=== PATIENT | male | born 1990 | race Caucasian/White ===

== ENCOUNTER 2020-03-18 09:08 | Day surgery (SDC) | payer MEDICAID, SELFPAY ==
[2020-02-25 14:54] VITALS: BMI 38.4
--- NOTE | 2020-03-12 14:27 | NURSING ---
Addendum entered by Janet Reynolds 03/12/20 14:39: When attempting to schedule labs and EKG to be completed the week prior to surgery, mother states (for multiple personal reasons) that she would not be able to drive pt to [facility] due to driving at dark, babysitting, etc. This RN explained the risk in waiting to have tests done closer to day of surgery. Mother verbalizes understanding. appointments made per mother's request. Original Note: During PAT Phone Call, pt's mother answered health history questions, as she said she was POA and that pt was unavailable. Throughout the end of the phone call, mother conversed with son while they were in the store. Mother talked over RN conducting phone call. This RN asked mother if she needed time to finish shopping discussion with son. Mother states she needed RN to proceed. RN gave preOP instructions for surgery regarding testing appointments, NPO status, arrival time, and asked for clarification that mother was hearing info correctly, as this RN could hear shopping discussions continuing to be made whilst RN was giving instructions. RN made appointments at mother's request; mother asked that those appts be cancelled due to driving long distance and other personal reasons. RN rescheduled appointments at mothers request. RN repeated instructions and times multiple times. Mother verbalizes understanding, repeats back to RN the dates and times of testing, and denies further questions.
--- NOTE | 2020-03-17 10:23 | EKG12_ITS ---
Test Reason : PRE SURGERY Blood Pressure : / mmHG Vent. Rate : 081 BPM Atrial Rate : 081 BPM P-R Int : 162 ms QRS Dur : 110 ms QT Int : 394 ms P-R-T Axes : 042 005 011 degrees QTc Int : 457 ms Normal sinus rhythm Normal ECG Confirmed by JUANPABLO CARR, CRIS ([id number]), assignment desk editor MALIKA GAMA ([id number]) on 03/18/2020 9:14:00 AM Referred By: Rachana Rodriguez Confirmed By:CRIS GERONIMO MD
[2020-03-17 11:22] LABS: Hematocrit 46.1 % (40-54); Mean Corp Hgb Conc 32.5 g/dL (32-36); Mean Corpuscular Hgb 29.1 pg (27.0-32.0); Mean Corpuscular Volume 89.3 fL (80-94); Mean Platelet Vol. 11.6 fl (6.2-12.0); Platelet Count 319 K/mm3 (150-450); RBC Distribution Width CV 12.1 % (11.6-14.6); RBC Distribution Width SD 39.5 fl (35.1-43.9); Red Blood Count 5.16 M/mm3 (4.6-6.2); White Blood Count 9.7 K/mm3 (4.4-11.0)
[2020-03-17 12:02] LABS: Anion Gap 6 (5-15); BUN 6 mg/dL (7-18); BUN/Creat Ratio 6.5 RATIO (10-20); Calcium,Total 9.2 mg/dL (8.5-10.1); Chloride 103 mmol/L (98-107); Creatinine, Serum 0.92 mg/dL (0.70-1.30); EST Glomerular Filtration Rate 102 mL/min (>60); Est Glom Filt Rate - Afr Amer 123 mL/min (>60); Glucose 125 mg/dL (74-106); Potassium 3.7 mmol/L (3.5-5.1); Sodium Level 139 mmol/L (136-145)
[2020-03-18] VITALS (8 sets, daily range): BP systolic 126–151; BP diastolic 82–98; PULSE 76–109; RESP 12–17; TEMP 36.6; O2SAT 94–98; BMI 39.6
--- NOTE | 2020-03-18 06:52 | HP_ITS ---
I have re-examined the patient. There are no clinical changes since date of exam. Intake Intake Visit Reasons: LEFT SHOULDER Accompanied by: Mother Is patient in pain?: Yes Pain scale (1-10): 10 Allergies acetaminophen [From Percocet] Allergy (Mild, Verified 03/10/20 14:35) Extreme vomiting, nausea amoxicillin Allergy (Mild, Verified 03/10/20 14:35) Anaphylaxis, Rash loperamide [From Imodium A-D] Allergy (Mild, Verified 03/10/20 14:35) Hives oxycodone [From Percocet] Allergy (Mild, Verified 03/10/20 14:35) Extreme vomiting, nausea Penicillins Allergy (Mild, Verified 03/10/20 14:35) Anaphylaxis, Rash topiramate [From Topamax] Allergy (Mild, Verified 03/10/20 14:35) SOB, nausea, GI upset Medications acetaminophen 325 mg capsule 325 mg PO ONCE PRN 02/25/20 [History Confirmed 03/10/20] ibuprofen 800 mg tablet tab PO 02/25/20 [History Confirmed 03/10/20] promethazine 25 mg tablet tab PO 02/25/20 [History Confirmed 03/10/20] rizatriptan 10 mg tablet tab PO 02/25/20 [History Confirmed 03/10/20] diphenhydramine HCl 25 mg capsule 25 mg PO QHS PRN 03/10/20 [History Confirmed 03/10/20] gabapentin 600 mg tablet 900 mg PO TID tab 03/10/20 [History Confirmed 03/10/20] nadolol 40 mg tablet 40 mg PO DAILY tab 03/10/20 [History Confirmed 03/10/20] tizanidine 2 mg tablet 6 mg PO QHS tab 03/10/20 [History Confirmed 03/10/20] PFSH Medical History (Updated 02/25/20 @ 15:00 by Reyna Ferguson) Migraines (Acute) shoulder slap repair (Acute) Chronic pain (Chronic) Surgical History (Updated 02/25/20 @ 15:00 by Reyna Ferguson) H/O arthroscopic knee surgery (Acute) Family History (Updated 02/25/20 @ 15:01 by Reyna Ferguson) Mother POTS (postural orthostatic tachycardia syndrome) Diabetes Hypertension CVA (cerebral vascular accident) Social History (Updated 03/12/20 @ 12:[address] Rachana Rodriguez, ) household members: other details: mother housing: house Smoking Status: Former smoker Tobacco: How many years used: 13 alcohol intake: current alcohol intake frequency: holidays/special occasions only what type of physical activity do you participate in: none do you feel safe at home: Yes HPI LEFT SHOULDER: Surgical H&P: Yes Details: Parts of this documentation were recorded by a scribe, this documentation accurately reflects the service provided and the decisions made by me, Dr. Rachana Rodriguez, 03/10/20 [id number]. MEG VALDIVIA is a 30 year old M here today for his two week follow up to review. Patient states he has had no changes since his last office visit. Pain is rated: 10/10 from the pain scale. Patient has been taking Tylenol and ibuprofen for pain relief. Patient's mother brought in the surgical images that were requested. ROS Musc Reports system reviewed and no additional complaints, except as docu, Reports joint pain, Reports numbness, Reports tingling Neuro Yes numbness, Yes tingling Ortho Exam Right Shoulder Skin/Wound: Yes CDI, No ecchymosis, No erythema, No swelling Testing: Positive AROM-Forward Elevation 0-180 Internal Rotation: T12 Left Shoulder Skin/Wound: Yes CDI, No ecchymosis, No erythema, No swelling Testing: Yes AROM-Forward Elevation 0-180, Yes Apprehension Test, No Sulcus Sign, Yes translation (anterior) Internal Rotation: T12 SHOULDER: 4/5 deltoid, 4/5 biceps, neuro intact bilaterally. symmetrical reflexes. negative hoffmans Assessment & Plan Problems 1. 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 Tear of left glenoid labrum, subsequent encounter S43.432D Plan Personally reviewed patient medication records and operative reports. Treatment options are do nothing or injection or PT or left shoulder scope for labral tear. Patient educated that the previous surgery may have repaired the labrum too tight and this could be causing the apprehension anteriorly and he just needs an additional anchor placed. Reviewed the pre-operative plans with the patient. Risks and benefits of the procedure were fully explained, including but not limited to infection, neurovascular injury, continued pain, arthritis, stiffness, need for further surgery, re-injury, DVT, PE, general risks of anesthesia, and loss of limb or life. The patient understands all the risks and does wish to proceed with written consent for left shoulder arthroscopy capsulorraphy, possible revision SLAP repair, subacromial decompression/acromioplasty, repair as indicated. DOES NOT want a nerve block has a hx of complications with this in the past. Follow up post op or sooner if pain, swelling, numbness or associated symptoms, or concerns develop. All questions answered. Patient in agreement of plan. On physical exam patient again is posteriorly dislocating with minimal effort he has done a lot of physical therapy most of his pain is because of the instability posteriorly and not anteriorly. At this point we did discuss the fact that his IGH L was also redone and so this will be tightened both anteriorly and posteriorly will drive some capsule to facilitate a posterior capsular closure as well as a labral repair as it did not appear to be much capsular closure on his last surgery. We will also have to look at his rotator cuff as well as evaluate. The biggest risk for him is continued instability and/or stiffness. This was discussed to create quite some detail with family both in the office and again today preop. Patient is aware would like proceed with left shoulder arthroscopy knowing the risks benefits alternatives surgery. 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
[2020-03-18] MEDS: Lactated Ringers 1,000 ML 100 ML IV (10:00)
[2020-03-18] MEDS: Epinephrine (1 mg/ml) 1 MG/ML VIAL (12:10)
[2020-03-18] MEDS: Bupiv/Epi 0.25% 30 ML Vial (13:30)
[2020-03-18] MEDS: Mupirocin Ointment 22gm Tube 1 APPLIC (13:30)
--- NOTE | 2020-03-18 14:47 | DCINST_ITS ---
Discharge Diet: No Restrictions - sling at all times unless doing pendulums three times a day, follow up on monday with pillo, keep dressing clean,dry, and intact, call with concerns Discharge Activity: May Not Drive May shower in (days): 1 Ice area for (Minutes): 20 - Every hour while awake. Weight Bearing Status: Weight bearing as tolerated Keep extremity elevated above heart level: Operative Extremity Call your doctor if your incision/area has: Continuous Slow Oozing, Sudden Increased Bleeding, Increased Pain/ Swelling, Increased Redness, Foul Smelling Discharge Call your doctor if you observe: Fever of 101 or Higher, Coldness, Increased Pain, Numbness or Tingling, Change in Color, Calf discomfort Allergies/Adverse Reactions: Allergies acetaminophen [From Percocet] Allergy (Mild, Verified 03/18/20 09:37) Extreme vomiting, nausea amoxicillin Allergy (Mild, Verified 03/18/20 09:37) Anaphylaxis, Rash loperamide [From Imodium A-D] Allergy (Mild, Verified 03/18/20 09:37) Hives oxycodone [From Percocet] Allergy (Mild, Verified 03/18/20 09:37) Extreme vomiting, nausea Penicillins Allergy (Mild, Verified 03/18/20 09:37) Anaphylaxis, Rash topiramate [From Topamax] Allergy (Mild, Verified 03/18/20 09:37) SOB, nausea, GI upset duloxetine [From Cymbalta] Allergy (Verified 03/18/20 09:37) Nausea/Vom/Diarrhea Medications to take at Discharge ibuprofen 800 mg tablet 800 tab PO Q12H PRN 02/25/20 promethazine 25 mg tablet 25 mg PO DAILY PRN PRN 02/25/20 rizatriptan 10 mg tablet 10 mg PO DAILY PRN PRN 02/25/20 diphenhydramine HCl 25 mg capsule 25 mg PO DAILY PRN 03/10/20 gabapentin 600 mg tablet 900 mg PO TID tab 03/10/20 nadolol 40 mg tablet 40 mg PO DAILY tab 03/10/20 tizanidine 2 mg tablet 6 mg PO QHS tab 03/10/20 Acetaminophen 1,000 mg PO Q8 03/12/20 Hydrocodone Bitart/Apap 5-325 [Aurora 5MG-325MG] 1 - 2 tab PO Q6H PRN PRN 5 Days #40 tab 03/18/20 The following prescriptions were given: Hydrocodone Bitart/Apap 5-325 [Aurora 5MG-325MG] 1 - 2 tab PO Q6H PRN PRN 5 Days #40 tab PRN Reason: Pain Transmission Status: Received by [facility] Primary Care Physician: Radha Garcia MD [Primary Care Provider] - Test Results: Test results from this visit will be discussed in further detail at your follow-up appointment, if applicable. Please Follow Up With: Rachana Rodriguez, DO - [phone]
--- NOTE | 2020-03-18 14:48 | OP.PCM_ITS ---
Report of Operation Date of Procedure: 03/18/20 Pre-Operative Diagnosis: left shoulder recurrent posterior instability, im pingment syndrome Post-Operative Diagnosis: same Surgery/Procedure Performed:: sals, posterior and anterior capsulorraphy, subacromial decompression/acromioplasty librarian special collections: Jermain Panchal Type of Anesthesia:: General Anesthesiologist: Rashad Jack Estimated Blood Loss (mL): min Fluids Replaced: 1200cc lr Description of Procedure: Preop note Patient is a 30-year-old male with recurrent left posterior instability. Patient has had done multiple physical therapy sessions as well as other conservative treatment MRI confirms posterior labral tear on physical exam is most concerning is he can dislocate or sublux posteriorly quite easily. He has failed conservative treatment options again and is having considerable pain. He is also positive impingement syndrome on physical exam recalcitrant to conserviatve treatment. Patient elected proceed with left shoulder arthroscopy repair as indicated.Reviewed the pre-operative plans with the patient. Risks and benefits of the procedure were fully explained, including but not limited to infection, neurovascular injury, continued pain, arthritis, stiffness, need for further surgery, re-injury, DVT, PE, general risks of anesthesia, and loss of limb or life. The patient understands all the risks and does wish to proceed with written consent. Susan Tomas We discussed the current risk associated COVID-19. While it is understood that there is a community spread of COVID 19 the risk of eamon COVID-[address] [facility] is very low, however, the risk cannot be completely mitigated because of the community spread of the disease. We discussed in detail the risk of exposure to and or potential harm posed by the COVID-19 virus with having a surgery/procedure at this time versus the risk of delaying the surgery/procedure. Is not possible to know either the risk of delaying the surgery procedure or chance of getting an infection with perfect accuracy, but a joint decision was made to proceed at this time with a schedule surgery/procedure as indicated on the consent form. Patient was notified that we will need to comply with any screening or testing [facility] wishes to perform or that surgery may be delayed for any positive results. Op note Patient seen and examined preoperative holding area. Left arm was marked. Patient brought to the operating room and placed supine on the operating table. Signed, anesthesia, antibiotics were ministered. Evaluation under anesthesia proved posterior translation, no anterior shift. Left arm was prepped and draped in usual sterile technique. Patient was placed lateral after patient patient was placed lateral. All bony prominences well-padded and axillary roll was placed under his right side. The left arm again was prepped and draped in usual sterile technique. We marked out all bony landmarks for portal placement. Timeout was performed. We then insufflated the glenohumeral joint for the posterior aspect. With good return. We then created a posterior portal with 11 blade blade. We get began a diagnostic arthroscopy. The humeral head set quite posteriorly. There was some eburnated changes the both the glenoid as well as the humeral head he had extending out the central aspect of his glenoid as well as his humeral head and type III thinning of descent centralized. He had some fraying also on the anterior and posterior edges of his labrum. At the labral cartilage interface. We then created an anterior portal under direct visualization. Were able to probe the biceps SLAP repair which was stable and intact. We then were able to visualize a quite patulent inferior glenohumeral ligament. The patient had a positive drive-through sign. We then created a second posterior portal under direct visualization. We then inserted an elevator to elevate the posterior labrum which had fissures and was torn it was actually redundant and scarred in on the posterior wall of the glenoid. We used a combination of elevator and shaver to release for good bed for our capsulorrhaphy posteriorly. We then placed to double loaded suture tacks starting with inferior and then grabbing capsule and labrum and using horizontal Zolla mattress stitches 1 more created more superior driving force for our labral repair. We had excellent bump afterwards. We probed the repair which was good as well. We then moved to her anterior corpus capsulorrhaphy as his IGH L was quite redundant and loose we did 1 inferior anterior double loaded suture tack in place again the sutures in horizontal mattress configuration. This really cinched down the IGH L and we did visualize the humeral head was also centralized in our homerun position no instability had a posterior shock at the end of the case. Please note that anteriorly we did evaluate the patient he had some posterior subluxation and preoperatively prior to prepping draping the arm. Again we tested and postoperatively had a negative shuck on an exam we did not sublux after was happy with our repair. We then moved to the subacromial space. We created a lateral portal under direct visualization. Patient had hyperemic and excessive bursitis which was resected with combination of shaver and ablator. Both the glenohumeral and subacromial space were irrigated with copious muscle sterile saline. The portals were closed with interrupted 5 nylon stitches. Sterile dressings were applied and a sling was applied. Patient tolerated procedure well no complication transfer recovery room stable condition. Discussed with family Pharmacy has prescription Call with increased pain numbness tingling further issues arise Patient please note has pre-existing numbness in that left arm secondary to the block he received after first surgery. Plan left doing pendulums, follow-up on Monday with Joshua for dressing change, follow-up in 2 weeks with me review pictures see discharge instructions Dragon disclaimer this note was generated with [employer] dictation software. It may contain incorrect words, spelling, and punctuation that were not noted in checking the note before signing.
[2020-03-18] MEDS: HYDROcodone Bitartrate/Apap 5/325 Tablet PO (17:07)
[2020-03-18] MEDS: Ondansetron 4 MG/2 ML Vial IV (17:07)
== END 2020-03-18 17:46 | disposition home or self-care (01) ==
LOC: SDC 09:09 → AC 09:09
PROVIDERS: Anesthesiology; PCP Internal Medicine; Referring Provider Orthopaedic Surgery; Visit Provider Orthopaedic Surgery
PROC: (CPT 29807; principal; 2020-03-18 10:20)
DX: M75.42 Impingement syndrome of left shoulder (principal); M25.312 Other instability, left shoulder; S43.432A Superior glenoid labrum lesion of left shoulder, initial encounter; I10 Essential (primary) hypertension; G89.29 Other chronic pain; Z20.822 Contact with and (suspected) exposure to COVID-19; Z79.1 Long term (current) use of non-steroidal anti-inflammatories (NSAID); Z79.899 Other long term (current) drug therapy; Z87.891 Personal history of nicotine dependence; X58.XXXA Exposure to other specified factors, initial encounter; Y93.89 Activity, other specified; Y92.89 Other specified places as the place of occurrence of the external cause; Y99.8 Other external cause status
CPT/HCPCS: 01630; 29806; 29822; 36415; 80048; 85027; 87426; 93005; C9803; J7120; J2405